=== PATIENT | male | born 1965 | race Caucasian/White ===

== ENCOUNTER 2024-11-24 19:19 | Emergency (ER) | payer BC, SELFPAY ==
[2024-11-24] VITALS (10 sets, daily range): BP systolic 117–127; BP diastolic 80–84; PULSE 62–69; RESP 18; TEMP 37; O2SAT 97–99; BMI 25.8
--- NOTE | 2024-11-24 19:57 | ED.ALLEREA ---
HPI - Allergic Reaction General Time Seen by Provider: 19:57 Date Seen: 11/24/24 Chief complaint: Allergic Reaction Stated complaint: Face swelling up, itchy spots on legs and arms Time Seen by Provider: 11/24/24 19:57 Source: patient and RN notes reviewed Mode of arrival: ambulatory Limitations: no limitations History of Present Illness HPI narrative: This 59-year-old male is ambulatory into the ED of his own accord with concern of itchy rash in swollen lips. He completed amoxicillin 2 days ago. He awoke with a rash this morning. Notes he started to itch overnight. He noted red spots over his body and his lips have been swollen today. His tongue maybe feels slightly swollen. He has had no difficulty breathing, no difficulty swallowing or talking. He is not wheezing, history of asthma. He is not aware of any other new foods or products that may have caused this. He took 50 mg oral Benadryl at 2:30 p.m. did not help at all. Around 7:00 p.m. took 2 more Benadryl for total of 50 mg orally. This really has not helped the itching at all. No new illness symptoms like sore throat; he was placed on the antibiotic for prolonged upper respiratory symptoms of about 2 weeks and reports that he is feeling better from that. Related Data Previous Rx's ?Medication ?Instructions ?Recorded prednisone 20 mg tablet 20 mg PO BID #10 tabs 11/24/24 Allergies Allergy/AdvReac Type Severity Reaction Status Date / Time amoxicillin AdvReac Severe Anaphylaxis Verified 11/24/24 19:42 Review of Systems Status of ROS Reports: 6 or more systems reviewed and unremarkable except as noted in History and below PFSH REPLACED BY [facility] Social History Smoking Status: Never smoker Do you use any of these nicotine containing products: None How often do you have a drink containing alcohol: 2-3 times a week AUDIT-C Alcohol total score: 3 Non-prescribed substance use: denies use service: No Exam Const: Vital Signs, click to edit/add: Vital Signs - 24 hr 11/24/24 19:37 11/24/24 20:56 11/24/24 20:57 Temperature 98.6 F Pulse Rate 64 65 Pulse Rate [Right Pulse Oximeter] 68 Respiratory Rate 18 Blood Pressure 118/84 Blood Pressure [Ri ght Upper Arm] 127/81 Pulse Oximetry 98 98 98 Oxygen Delivery Me thod Room Air 11/24/24 21:00 11/24/24 21:01 11/24/24 21:15 Temperature Pulse Rate 68 66 64 Pulse Rate [Right Pulse Oximeter] Respiratory Rate Blood Pressure 118/83 Blood Pressure [Ri ght Upper Arm] Pulse Oximetry 98 97 98 Oxygen Delivery Me thod 11/24/24 21:16 11/24/24 21:17 11/24/24 21:30 Temperature Pulse Rate 65 66 62 Pulse Rate [Right Pulse Oximeter] Respiratory Rate Blood Pressure 117/81 Blood Pressure [Ri ght Upper Arm] Pulse Oximetry 98 98 99 Oxygen Delivery Me thod 11/24/24 21:31 Temperature Pulse Rate 69 Pulse Rate [Right Pulse Oximeter] Respiratory Rate Blood Pressure 119/80 Blood Pressure [Ri ght Upper Arm] Pulse Oximetry 97 Oxygen Delivery Me thod This 59yo male is alert, interactive, no apparent distress; breathing easliy on room air, no stridor, no tachypnea. Pupils equal round reactive, sclera clear, extraocular muscles intact. Both his upper and lower lips are swollen. Oropharynx shows a normal uvula, posterior pharynx is normal. Tongue does not look that edematous to me. His speech is normal. Neck supple, no adenopathy. Lungs are clear, good air entry, wheezing or crackles. CV regular rate and rhythm, no murmur. Back is without any rash, anterior chest without rash. Abdomen is soft, nontender, nondistended. On his lower extremities he has excoriations, can also see about nickel to quarter-sized erythematous mildly raised lesions consistent with hives. Documenting provider has reviewed patient's vital signs: yes Course Course ED Course: Reviewed with patient that this is most likely allergic reaction to amoxicillin. He is to consider himself allergic to penicillin class of medicines unless cleared in the future by an fireman helper. We will monitor on pulse oximetry, place an IV and start 125mg solumedrol, 25mg benadryl, 20mg pepcid. He will also get 10mg oral zyrtec. We discussed need for ongoing medicine as the amoxicillin will be in his system for a while longer. Reevaluation(s) Time of Reevaluation #1: 21:43 Reevaluation #1: Patient feels like he is improving. He feels like his tongue is back to baseline. He feels less pressure in his lips, his right upper lip certainly seems like it has less swelling. His arms and legs are not itching anymore. The your urticaria or hives is fading certainly on his legs, has some pinkish circles but they are not raised any longer. His tongue seems to be normal to me, admitted I did not really appreciate significant swelling baseline but he feels like it is back to normal which is reassuring. Will discharge to home. He understands to return if he is worsening again. Vital Signs Vital signs: Initial Vital Signs Temperature 98.6 F 11/24/24 19:37 Temperature Source Temporal Artery Scan 11/24/24 19:37 Pulse Rate 68 11/24/24 19:37 Pulse Rhythm Regular 11/24/24 19:37 Pulse Strength 3+ Normal 11/24/24 19:37 Respiratory Rate 18 11/24/24 19:37 Blood Pressure 127/81 11/24/24 19:37 Blood Pressure Mean 96 11/24/24 19:37 Blood Pressure Position Sitting 11/24/24 19:37 Pulse Oximetry 98 11/24/24 19:37 Oxygen Delivery Method Room Air 11/24/24 19:37 Vital Signs Temperature 98.6 F 11/24/24 19:37 Pulse Rate 68 11/24/24 19:37 Respiratory Rate 18 11/24/24 19:37 Blood Pressure 127/81 11/24/24 19:37 Pulse Oximetry 98 11/24/24 19:37 Oxygen Delivery Method Room Air 11/24/24 19:37 Temperature 98.6 F 11/24/24 19:37 Pulse Rate 69 11/24/24 21:31 Respiratory Rate 18 11/24/24 19:37 Blood Pressure 119/80 11/24/24 21:31 Pulse Oximetry 97 11/24/24 21:31 Oxygen Delivery Method Room Air 11/24/24 19:37 Medications Administered Medications: Discontinued Medications Generic Name Dose Route Start Last Admin Trade Name Freq PRN Reason Stop Dose Admin Cetirizine HCl 10 mg 11/24/24 20:04 11/24/24 20:38 Cetirizine Hcl 10 Mg Tablet PO 11/24/24 20:05 10 mg ONCE ONE Administration Diphenhydramine HCl 25 mg 11/24/24 20:03 11/24/24 20:43 Diphenhydramine 50 Mg/Ml Inj IVP 11/24/24 20:04 25 mg ONCE ONE Administration Famotidine 20 mg 11/24/24 20:03 11/24/24 20:44 Famotidine 10 Mg/Ml Inj IVP 11/24/24 20:04 20 mg ONCE ONE Administration Methylprednisolone Sodium Succinate 125 mg 11/24/24 20:03 11/24/24 20:46 Methylprednisolone Sod Succ 62.5 Mg/Ml (125) IVP 11/24/24 20:04 125 mg ONCE ONE Administration Discharge Plan Discharge Clinical Impression: Allergic drug reaction Qualifiers: Encounter type: initial encounter Qualified Code(s): T78.40XA - Allergy, unspecified, initial encounter Patient Disposition: Home, Self-Care Condition: Stable Instructions: Antibiotic Medication Allergy (ED) Additional Instructions: Continue with prednisone starting tomorrow morning and take as prescribed. Take Zyrtec 10 mg twice a day for the next 5-7 days. Do recommend picking up Pepcid which is [id number], take twice daily for the next 5-7 days. Can use Benadryl per bottle directions as needed for any return of itching/rash or symptoms. You may have some lingering intermittently recurrent symptoms periodically but if significantly worsening, need to be re-evaluated. Activity which makes you sweat or getting significantly hot will increase itching. May want to take more lukewarm showers until this has resolved. Activity Level: Activity as Tolerated Prescriptions: New prednisone 20 mg tablet 20 mg PO BID Qty: 10 0RF Follow Up/Referrals: Oniel Cerna MD [Primary Care Provider] - Stand Alone Forms: [employer] Info Instructions
[2024-11-24] MEDS: CETIRIZINE HCL 10 MG TABLET PO (20:38)
[2024-11-24] MEDS: diphenhydrAMINE 50 MG/ML inj 25 MG IVP (20:43)
[2024-11-24] MEDS: FAMOTIDINE 10 MG/ML inj 20 MG IVP (20:44)
[2024-11-24] MEDS: METHYLPREDNISOLONE SOD SUCC 62.5 MG/ML (125) 125 MG IVP (20:46)
--- OUTSIDE RECORDS SUMMARY | 2024-11-25 14:49 | XMS_ITS | Clinical Summary ---
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 Medications aspirin 81 mg tablet Take 1 tablet by mouth once daily with a meal. 0 1 Active multivitamin (MVI) tablet Take 1 tablet by mouth once daily. 0 1 Active cholecalciferol (VITAMIN D) 2,000 unit capsule Take 1 capsule by mouth once daily. 100 capsule 4 5 Active omega-3 fatty acids-vitamin E (FISH OIL) 1,000 mg cap Take 1 capsule by mouth once daily. 100 capsule 4 5 Active coenzyme q10 (CO Q-10) 100 mg capIndications:Hype rlipidemia, unspecified hyperlipidemia type Take 1 capsule by mouth once daily. 90 capsule 4 8 Active fexofenadine (ANA) 180 mg tabletIndications:E nvironmental allergies Take 1 tablet by mouth once daily. 100 tablet 4 8 Active omeprazole (PRILOSEC) 20 mg Delayed-Release capsuleIndications: Gastroesophageal reflux disease, unspecified whether esophagitis present Take 1 Capsule (20 mg) by mouth once daily before a meal. 90 Capsule 3 4 Active indomethacin (INDOCIN) 50 mg capsuleIndications: Idiopathic gout of right foot, unspecified chronicity Take 1 Capsule (50 mg) by mouth three times daily with meals. Take as needed for gout flare. 42 Capsule 1 4 Active atorvastatin (LIPITOR) 20 mg tabletIndications:H yperlipidemia, unspecified hyperlipidemia type Take 1 Tablet (20 mg) by mouth at bedtime. 90 Tablet 3 4 Active allopurinoL (ZYLOPRIM) 300 mg tabletIndications:I diopathic chronic gout of multiple sites without tophus Take 1 Tablet (300 mg) by mouth once daily. 90 Tablet 3 4 Active amoxicillin-clavula marlene (Augmentin) 875-125 mg tabletIndications:A cute non-recurrent maxillary sinusitis Take 1 Tablet by mouth two times daily with meals for 10 days. 20 Tablet 5 11/22/19 25 Active Problems Problem Noted Date Diagnosed Date Seborrheic keratosis 04/10/2024 Overview (04/10/2024): On back measures 10 by 15 mm as of 04/10/2024. Idiopathic gout of right foot 09/14/2022 Colon polyp 09/01/2020 Overview (09/01/2020): Colonoscopy 08/2020 polyp, diverticulosis, repeat in 5 years Idiopathic chronic gout of multiple sites withou t tophus 07/03/2019 Routine adult health maintenance 05/08/2016 Overview (05/08/2016): Colonoscopy 04/2016 normal repeat in 10 years Hyperlipidemia 12/19/2015 Acute atopic conjunctivitis 01/26/2013 Family history of early CAD 09/22/2012 Esophageal reflux 01/15/2007 Overview (04/01/2018): When he started the Omeprazole, it changed his life. He last went off this accidentally in 2009 and he had a lot of symptoms. 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 Atrial fibrillation Brother 1 Solomon Heart failure Brother 1 Solomon with covid;on disability Obesity Brother 1 Solomon wheelchair boun d Hypertension Brother 2 Shay Benign prostatic hyperplasia Father Heart Disease Father CABG at 61; no nsmoker Diverticulitis Mother Good Health Mother Diabetes Paternal Grandfather 60s Hypertension Paternal Grandfather Hypertension Paternal Grandmother Heart Disease Paternal Uncle AK AND ANGIO PLASTY at age 51 Good Health Sister Adopted Relation Name Status Comments Brother 1 Solomon Alive Brother 2 Shay Alive Father Alive Mother Alive Paternal Grandfather Paternal Grandmother Paternal Uncle Sister Social History Tobacco Use Types Packs/Day Years Used Date Smoking Tobacco: Never Passive Smoke Exposure: Never Smokeless Tobacco: Never Tobacco Cessation:Counseling Given: Yes Alcohol Use Standard Drinks/Week Comments Yes 1 (1 standard drink = 0.6 oz pur e alcohol) screening tab PHQ-2 Answer Date Recorded PHQ-2 TOTAL SCORE 0 04/10/2024 Social Connections Answer Date Recorded Do you often feel lonely or isolated from those around you? 0 11/12/2024 Alcohol Use Answer Date Recorded How often do you have a drink containing alcohol ? 2 04/10/2024 How many drinks containing a lcohol do you have on a typical day when you are drinking? 0 04/10/2024 How often do you have five or more drinks on one occasion? 0 04/10/2024 Financial Resource Strain Answer Date R ecorded Difficulty of Paying Living Expenses 3 11/12/2024 Difficulty of Paying Living Expenses Not on file 11/12/2024 Food Insecurity Answer Date Recorded Do you worry your food will run out before you are able to buy more? 1 11/12/2024 Transportation Needs Answer Date Record ed Does lack of transportation keep you from medica l appointments? 1 11/12/2024 Does lack of transportation keep you from work, meetings or getting things that you need? 1 11/12/2024 Housing Stability Answer Date Recorded What is your housing situation today? 1 11/12/2024 Utilities Answer Date Recorded Do you have trouble paying f or utilities (for example, heat, electricity, water, phone)? 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 Not on file Not on file Obstetrics History Last Filed Vital Signs Vital Sign Reading Time Taken Comments Blood Pressure 138/90 11/12/2024 3:12 PM FABRIC AWNING REPAIRER Pulse 65 11/12/2024 3:12 PM FABRIC AWNING REPAIRER Temperature 36.4 C (97.5 F) 04/10/2024 8:28 AM CDT Respiratory Rate - - Oxygen Saturation 99% 11/12/2024 3:12 PM FABRIC AWNING REPAIRER Inhaled Oxygen Concentration - - Weight 75.9 kg (167 lb 6.4 oz) 11/12/2024 3:12 P M FABRIC AWNING REPAIRER Height 168 cm (5' 6.14) 04/10/2024 8:28 AM CDT Body Mass Index 26.9 04/10/2024 8:28 AM CDT Plan of Treatment Health Maintenance Due Date Last Done Comments Pneumococcal series for age 50+ (1 of 1 - PCV) 2016 Influenza for age 50-64 06/28/2024 11/01/19 24, 09/27/2022, 09/05/2021, Additional history exists BMI (ht and wt on same day) for age 18+ 04/10/2025 04/10/2024, 09/27/2023, 09/14/2022, Additional history exists Depression screening for age 12+ 04/10/2025 04/10/2024, 04/10/2024, 09/27/2023, Additional history exists Lipids for age 45-75 04/06/2029 04/06/2024, 09/23/2023, 09/11/2022, Additional history exists Colonoscopy through age 75 08/31/203008/31, 08/31/2020, 08/31/2020, Additional history exists Tetanus booster 09/27/2033 09/27/2023, 08/29, 10/28/2002, Additional history exists Zoster (shingles) series for age 50+ Completed 09/09/2020, 06/17/2020 Tdap Completed 09/27/2023, 09/22/2012 HIV for age 15-65 Completed 04/06/2024 Hepatitis C screening for ag e 18-79 Completed 04/06/2024 COVID-19 vaccine series Completed 09/10/20 24, 11/01/2023, 09/27/2022, Additional history exists Procedures Procedure Name Priority Date/Time Associated Diagnosis Comments ANTI HIV 1/2 Add On 04/06/2024 7:32 AM CDT Screening for HIV (human immunodeficiency virus) ANTI HCV Add On 04/06/2024 7:32 AM CDT Need for hepatitis C screening test LIPID PANEL W REFLEX MEASURED LDL Routine 04/06/2024 7:32 AM CDT Other hyperlipidemia COLONOSCOPY DIAGNOSTIC Routine 08/31/2020 9:22 AM FABRIC AWNING REPAIRER Diverticulosis Abnormal CT of the abdomen Polyp of colon, unspecified part of colon, unspecified type from Last 3 Months or Most Recently Relevant to Health Maintenance Results * LIPID PANEL W REFLEX MEASURED LDL (04/06/2024 7:32 AM CDT) CHOLESTEROL,TOTAL 120 100 - 199 mg/dL 04/06/2024 3:11 PM CDT [facility] Comment: Cholesterol, Total Reference Ranges Desirable <200 mg/dL Borderline 200-239 mg/dL High >=240 mg/dL TRIGLYCERIDES 81 <150 mg/dL 04/06/2024 3:11 PM CDT [facility] HDL CHOLESTEROL 41 >40 mg/dL 3:11 PM CDT [facility] NON-HDL CHOLESTEROL 79 <145 mg/dl 04/06/2024 3:11 PM CDT [facility] CHOL/HDL RATIO 2.93 <4.50 04/06/2024 3:11 PM CDT [facility] LDL CHOLESTEROL 63 <=130 mg/dL 04/06/2024 3:11 PM CDT [facility] VLDL CHOLESTEROL 16 <=30 mg/dL 04/06/2024 3:11 PM CDT [facility] PROVIDER ORDERED STATUS RANDOM 04/06/2024 3:11 PM CDT [facility] Blood BLOOD SPECIMEN / Unknown Venipuncture / Unknown 04/06/2024 7:32 AM CDT 04/06/2024 7:32 AM CDT Oniel Cerna MD CHEMISTRY Final Resu lt [facility] [address] [place] [id number], [place] * ANTI HCV (04/06/2024 7:32 AM CDT) HEPATITIS C ANTIBODY Non-Reacti ve Non-React jef 04/10/2024 10:33 AM CDT [facility] Comment:Please note, per www .CDC.gov: If a patient is known to be at high risk of HCV infection, or is symptomatic, and the physician's suspicion of HCV infection is high, HCV RNA testing is often employed and is of diagnostic value, even after an initial negative anti-HCV test result. Blood BLOOD SPECIMEN / Unknown Venipuncture / Unknown 04/06/2024 7:32 AM CDT 04/06/2024 7:32 AM CDT Oniel Cerna MD SEND OUTS Final Resu lt [facility] [address] [place] [id number], [place] * ANTI HIV 1/2 [19824.0] (04/06/2024 7:32 AM CDT) HIV-1/HIV-2 SCREEN Non-Reacti ve Non-Reacti ve 04/10/2024 10:33 AM CDT [facility] Comment:HIV-1 p24 and HIV-1/ HIV-2 Ab Not Detected. Blood BLOOD SPECIMEN / Unknown Venipuncture / Unknown 04/06/2024 7:32 AM CDT 04/06/2024 7:32 AM CDT Oniel Cerna MD SEND OUTS Final Resu lt [facility] [address] [place] [address], * COLONOSCOPY DIAGNOSTIC (08/31/2020 9:22 AM FABRIC AWNING REPAIRER) Oniel Cerna MD GI PROCEDURE ORD Final Res ult from Last 3 Months or Most Recently Relevant to Health Maintenance Insurance [facility] [employer] Care Teams Outside Plant Supervisor Relationship Specialty Start Date End Date [place]iel [place] [address] PCP - General 01/26/08
== END 2024-11-24 22:03 | disposition home or self-care (01) ==
PROVIDERS: Emergency Provider Family Medicine; PCP Family Medicine
DX: L27.1 Localized skin eruption due to drugs and medicaments taken internally (principal)
CPT/HCPCS: 96374; 96375; 99283; 99284; A9270; J1200; J2919; S0028